=== PATIENT | female | born 2000 | race Two or more races ===

== ENCOUNTER 2022-10-30 11:51 | Emergency (ER) | payer OTHER ==
[~2022-10-30] VITALS: Ht 157.5 cm; Wt 70.8 kg
== END 2022-10-30 13:51 | disposition home or self-care (01) ==
LOC: ER 11:51
DX: S61.011A Laceration without foreign body of right thumb without damage to nail, initial encounter (principal); X58.XXXA Exposure to other specified factors, initial encounter; Y93.89 Activity, other specified; Y92.89 Other specified places as the place of occurrence of the external cause; Y99.8 Other external cause status